=== PATIENT | male | born 1960 | race Caucasian/White ===

== ENCOUNTER 2017-01-09 11:32 | Inpatient (IN) | payer OTHER ==
[~2017-01-09] VITALS: Ht 177.8 cm; Wt 102.7 kg
[2017-01-09] VITALS (8 sets, daily range): BP systolic 117–144; BP diastolic 61–85; PULSE 73–88; RESP 18–25; TEMP 97.7–98.7; O2SAT 97–99
[~2017-01-09 11:32] MED LIST: DOXY100T PO; SULF-154 PO; TRAM50 PO; Z.0.NO CURRENT MEDS
[2017-01-09] MEDS ORDERED: bp med PO (12:05)
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
[2017-01-09 14:09] LABS: AUTOMATED NEUTROPHIL # 10.5 TH/MM3 (1.8-7.7); BASOPHIL # 0.1 TH/MM3 (0-0.2); BASOPHIL % 0.4 % (0.0-2.0); EOSINOPHIL % 0.3 % (0.0-4.0); HEMATOCRIT 48.8 % (39.0-51.0); HEMO FLAGS DIFF FINAL; LYMPH % 12.4 % (9.0-44.0); LYMPHOCYTE # 1.7 TH/MM3 (1.0-4.8); MEAN CELL VOLUME 83.4 FL (80.0-100.0); MEAN CORPUSCULAR HEMOGLOBIN 28.5 PG (27.0-34.0); MEAN CORPUSCULAR HGB CONC 34.1 % (32.0-36.0); NEUT % 75.9 % (16.0-70.0); PLATELET COUNT 170 TH/MM3 (150-450); RED BLOOD COUNT 5.85 MIL/MM3 (4.50-5.90); RED CELL DISTRIBUTION WIDTH 13.9 % (11.6-17.2); WHITE BLOOD COUNT 13.9 TH/MM3 (4.0-11.0)
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
[2017-01-09 14:18] LABS: APTT (PATIENT) 23.6 SEC (24.3-30.1); PROTHROMBIN TIME - PATIENT 11.1 SEC (9.8-11.6)
[2017-01-09 14:25] LABS: BICARBONATE 23.8 MEQ/L (21.0-32.0); POTASSIUM 3.8 MEQ/L (3.5-5.1)
[2017-01-09] MEDS ORDERED: CHLORHEXIDINE GLUCONATE 2 % 1 PACK (2 CLOTHS) TOP PRN ×2 (15:30→17:00)
[2017-01-09] MEDS ORDERED: ACETAMINOPHEN 325 MG TAB PO PRN ×2 (15:30→18:00)
[2017-01-09] MEDS ORDERED: MISCELLANEOUS NURSING INFORMATION XX SCH ×2 (15:30→17:00)
[2017-01-09] MEDS ORDERED: SODIUM CHLORIDE 0.9% FLUSH 10 ML FLUSH IV FLUSH PRN (15:30)
[2017-01-09] MEDS: PANTOPRAZOLE SODIUM 40 MG VIAL IV SCH (15:52)
[2017-01-09] MEDS: SODIUM CHLOR 0.9% 1000 ML INJ 1,000 ML IV SCH (15:52)
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
[2017-01-09] MEDS ORDERED: LORazepam 2 MG/ML VIAL IVP PRN (18:00)
[2017-01-09] MEDS ORDERED: RESP: ALBUTEROL 2.5 MG/3 ML NEB (PRN) NEB (18:00)
[2017-01-09] MEDS ORDERED: ALUMINUM/MAGNESIUM/SIMETH 30 ML CUP PO PRN (18:00)
[2017-01-09] MEDS ORDERED: MAGNESIUM HYDROXIDE SUSP 30 ML CUP PO PRN (18:00)
[2017-01-09] MEDS ORDERED: LABETALOL HCL 100 MG/20 ML VIAL IV PRN (18:00)
[2017-01-09] MEDS ORDERED: cloNIDine HCL 0.1 MG TAB PO PRN (18:00)
[2017-01-09] MEDS: SODIUM CHLORIDE 0.9% FLUSH 10 ML FLUSH IV FLUSH SCH (21:00)
[2017-01-09] MEDS: ACETAMINOPHEN/HYDROcodone 325 MG/10 MG TAB PO PRN (21:24)
[2017-01-09] MEDS: DOCUSATE SODIUM 100 MG CAP PO SCH (21:34)
[2017-01-09] MEDS: BACITRACIN TOP OINT 15 GM TUBE TOP SCH (22:08)
[2017-01-10] VITALS (13 sets, daily range): BP systolic 114–140; BP diastolic 74–96; PULSE 56–83; RESP 15–20; TEMP 97.1–99.4; O2SAT 94–98
[2017-01-10] MEDS: MORPHINE SULFATE 4 MG/ML INJ IV PRN ×2 (01:10→04:23)
[2017-01-10] MEDS: SODIUM CHLOR 0.9% 1000 ML INJ 1,000 ML IV SCH ×2 (03:15→15:10)
[2017-01-10] MEDS: CHLORHEXIDINE GLUCONATE 2 % 1 PACK (2 CLOTHS) TOP SCH (03:41)
[2017-01-10] MEDS ORDERED: CHLORHEXIDINE GLUCONATE 2 % 1 PACK (2 CLOTHS) TOP SCH (04:00)
[2017-01-10 04:20] LABS: AUTOMATED NEUTROPHIL # 4.7 TH/MM3 (1.8-7.7); BASOPHIL % 0.4 % (0.0-2.0); EOSINOPHIL # 0.1 TH/MM3 (0-0.4); EOSINOPHIL % 0.8 % (0.0-4.0); HEMATOCRIT 41.1 % (39.0-51.0); HEMO FLAGS DIFF FINAL; LYMPH % 26.8 % (9.0-44.0); LYMPHOCYTE # 2.2 TH/MM3 (1.0-4.8); MEAN CELL VOLUME 82.1 FL (80.0-100.0); MEAN CORPUSCULAR HEMOGLOBIN 28.4 PG (27.0-34.0); MEAN CORPUSCULAR HGB CONC 34.6 % (32.0-36.0); PLATELET COUNT 170 TH/MM3 (150-450); RED BLOOD COUNT 5.01 MIL/MM3 (4.50-5.90); RED CELL DISTRIBUTION WIDTH 13.7 % (11.6-17.2)
[2017-01-10 04:44] LABS: BICARBONATE 25.9 MEQ/L (21.0-32.0); POTASSIUM 3.7 MEQ/L (3.5-5.1)
--- NOTE | 2017-01-10 05:14 | RADRPT ---
EXAM DATE/TIME: 01/10/2017 04:02 [facility] COMPARISON: CT BRAIN W/O CONTRAST, January 09, 2017, 12:33. INDICATIONS : Evaluate for subarachnoid blood in frontal region. RADIATION DOSE: 56.35 CTDIvol (mGy) MEDICAL HISTORY : None SURGICAL HISTORY : None. ENCOUNTER: Initial ACUITY: 1 day PAIN SCALE: 4/10 LOCATION: cranial TECHNIQUE: Multiple contiguous axial images were obtained of the head. Using automated exposure control and adj ustment of the mA and/or kV according to patient size, radiation dose was kept as low as reasonably a chievable to obtain optimal diagnostic quality images. FINDINGS: There is a large scalp hematoma on the left no change. Slight hemorrhage is present in the right frontal lobe tracking along the anterior falx appears to have improved since the prior examination. There is no mass effect. There is new area of subarachnoid hemorrhage in the left high convexity post erior parietal lobule not present previously. CONCLUSION: 1. Stable right frontal subarachnoid hemorrhage without any significant mass effect. 2. New area of subarachnoid hemorrhage in the left high convexity posterior parietal lobule not prese nt previously. Leandra Welsh MD on January 10, 2017 at 5:09 Board Certified Radiologist. This report was verified electronically.
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
[2017-01-10] MEDS: DOCUSATE SODIUM 100 MG CAP PO SCH ×2 (08:12→21:13)
[2017-01-10] MEDS: PANTOPRAZOLE SODIUM 40 MG VIAL IV SCH (08:12)
[2017-01-10] MEDS: SODIUM CHLORIDE 0.9% FLUSH 10 ML FLUSH IV FLUSH SCH ×2 (08:13→21:13)
[2017-01-10] MEDS: BACITRACIN TOP OINT 15 GM TUBE TOP SCH ×2 (08:14→21:00)
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
[2017-01-10] MEDS: ACETAMINOPHEN/HYDROcodone 325 MG/10 MG TAB PO PRN (18:51)
[2017-01-11] MEDS: ACETAMINOPHEN/HYDROcodone 325 MG/10 MG TAB PO PRN ×5 (00:33→21:07)
[2017-01-11] MEDS: SODIUM CHLOR 0.9% 1000 ML INJ 1,000 ML IV SCH ×2 (03:05→14:10)
[2017-01-11 04:00] VITALS: BP 134/80; PULSE 53; RESP 20; TEMP 98; O2SAT 97
[2017-01-11] MEDS: CHLORHEXIDINE GLUCONATE 2 % 1 PACK (2 CLOTHS) TOP SCH (04:00)
[2017-01-11 07:35] LABS: APTT (PATIENT) 29.2 SEC (24.3-30.1)
[2017-01-11 08:00] VITALS: BP 134/81; PULSE 64; RESP 18; TEMP 96.8; O2SAT 97
[2017-01-11] MEDS: PANTOPRAZOLE SOD 40 MG DELAYED RELEASE TAB PO SCH (08:59)
[2017-01-11] MEDS: DOCUSATE SODIUM 100 MG CAP PO SCH ×2 (08:59→21:06)
[2017-01-11] MEDS: BACITRACIN TOP OINT 15 GM TUBE TOP SCH ×2 (09:00→21:00)
[2017-01-11] MEDS: SODIUM CHLORIDE 0.9% FLUSH 10 ML FLUSH IV FLUSH SCH ×2 (09:00→21:00)
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
[2017-01-11] MEDS: ONDANSETRON HCL 4 MG/2 ML VIAL IV PRN (10:36)
[2017-01-11 12:00] VITALS: BP 148/90; PULSE 65; RESP 18; TEMP 96.6; O2SAT 98
[2017-01-11 16:00] VITALS: BP 138/84; PULSE 60; RESP 18; TEMP 97.5; O2SAT 96
[2017-01-11 20:00] VITALS: BP 134/83; PULSE 59; RESP 20; TEMP 98.1; O2SAT 97
--- NOTE | 2017-01-11 23:58 | HHI.NSPN ---
History Chief Complaint: Mild frontal headache. Exam Results Vital Signs Date Time Temp Pulse Resp B/P Pulse Ox O2 Delivery O2 Flow Rate FiO2 01/11/17 20:00 98.1 59 20 134/83 97 01/10/17 09:20 21 01/10/17 08:00 Room Air Intake and Output 01/10/17 01/10/17 01/11/17 08:00 16:00 00:00 Intake Total 1159 ml 1140 ml Output Total 600 ml 400 ml Balance 559 ml 740 ml Physical Examination Resp: CTA bilaterally Heart: NSR no murmurs Abd: Soft positive bs Skin: Facial abrasions and edema left more than right. Muscle: Moves all 4 extremities well. Ambulating independently to bathroom. Neuro: Pt awake and alert. Follows simple commands. Pt anxious. He ambulates independently. He follows commands well. Lab, Micro, Other Results Laboratory Tests Test 01/11/17 06:50 Activated Partial 29.2 SEC Thromboplast Time Marco Neri MD Jan 11, 2017 23:58
[2017-01-12] VITALS: BP 123/84; PULSE 56; RESP 22; TEMP 97.6; O2SAT 96
[2017-01-12] MEDS: SODIUM CHLOR 0.9% 1000 ML INJ 1,000 ML IV SCH (02:55)
[2017-01-12 04:00] VITALS: BP 134/86; PULSE 59; RESP 20; TEMP 98.1; O2SAT 97
[2017-01-12] MEDS: CHLORHEXIDINE GLUCONATE 2 % 1 PACK (2 CLOTHS) TOP SCH (04:00)
[2017-01-12] MEDS: ACETAMINOPHEN/HYDROcodone 325 MG/10 MG TAB PO PRN (05:24)
[2017-01-12 08:10] VITALS: BP 127/84; PULSE 61; RESP 18; TEMP 97.4; O2SAT 96
[2017-01-12 08:26] LABS: APTT (PATIENT) 29.1 SEC (24.3-30.1)
[2017-01-12] MEDS: DOCUSATE SODIUM 100 MG CAP PO SCH (09:05)
[2017-01-12] MEDS: BACITRACIN TOP OINT 15 GM TUBE TOP SCH (09:05)
[2017-01-12] MEDS: SODIUM CHLORIDE 0.9% FLUSH 10 ML FLUSH IV FLUSH SCH (09:05)
[2017-01-12] MEDS: PANTOPRAZOLE SOD 40 MG DELAYED RELEASE TAB PO SCH (09:05)
[2017-01-12] MEDS ORDERED: HYDR-3583 PO (09:28)
--- NOTE | 2017-01-12 09:30 | HHI.DCPOC ---
Discharge Care Plan Diagnosis: (1) Closed head injury with brief loss of consciousness (2) Traumatic ecchymosis of right knee Your Health Problems Are: Difficulty with ADL Exercise Tolerance Chronic Pain Additional Problems Avoid aspirin and NSAIDs for 2 weeks following discharge. At risk for development of chronic subdural hematoma formation. Symptoms may occur up to several weeks following discharge, and include progressive headache , dizziness, speech difficulty, memory loss, weakness, loss of coordination, difficulty with ambulation. Return to emergency room or consult physicians immediately of such problems occur. Goals to Promote Your Health * To prevent worsening of your condition and complications * To maintain your health at the optimal level Directions to Meet Your Goals Take your medications as prescribed Follow your dietary instruction Follow activity as directed Keep your appointments as scheduled Take your immunizations and boosters as scheduled If your symptoms worsen call your PCP, if no PCP go to Urgent Care Center or Emergency Room Smoking is Dangerous to Your Health. Avoid second hand smoke Call the 24-hour hour crisis hotline for domestic abuse at Marco Neri MD Jan 12, 2017 09:30
--- NOTE | 2017-01-12 09:33 | HHI.DS ---
Discharge Summary Admission Date Jan 09, 2017 at 14:44 Discharge Date: Jan 12, 2017 Admitting Diagnosis TRAUMATIC SAH; FRONTAL-PARIETAL SCALP HEMATOMA (1) Closed head injury with brief loss of consciousness Diagnosis: Principal ICD Code: S06.9X9A (2) Traumatic ecchymosis of right knee Diagnosis: Secondary ICD Code: S80.01XA (3) Scalp contusion Diagnosis: Secondary ICD Code: S00.03XA CBC/BMP: 01/10/17 0319 01/10/17 0319 Significant Findings Laboratory Tests Test 01/09/17 01/10/17 13:55 03:19 White Blood Count 13.9 TH/MM3 (4.0-11.0) Neutrophils (%) (Auto) 75.9 % (16.0-70.0) Monocytes (%) (Auto) 11.0 % 14.0 % (0.0-8.0) (0.0-8.0) Neutrophils # (Auto) 10.5 TH/MM3 (1.8-7.7) Monocytes # (Auto) 1.5 TH/MM3 1.1 TH/MM3 (0-0.9) (0-0.9) Activated Partial 23.6 SEC Thromboplast Time (24.3-30.1) Blood Urea Nitrogen 19 MG/DL (7-18) Estimat Glomerular Filtration 69 ML/MIN (>89) 80 ML/MIN (>89) Rate Random Glucose 131 MG/DL (74-106) Imaging Last Impressions Head CT 01/10/17 0400 Signed Impressions: Service Date/Time: Tuesday, January 10, 2017 04:02 - CONCLUSION: 1. Stable right frontal subarachnoid hemorrhage without any significant mass effect. 2. New area of subarachnoid hemorrhage in the left high convexity posterior parietal lobule not present previously. Leandra Welsh MD Knee X-Ray 01/10/17 0000 Signed Impressions: Service Date/Time: Tuesday, January 10, 2017 08:35 - CONCLUSION: 1. Mild last arthritic changes. No acute fracture. Krunal Reeves MD Chest X-Ray 01/09/17 0000 Signed Impressions: Service Date/Time: January 13:07 - CONCLUSION: The lungs are clear. Matthew Chery MD Cervical Spine CT 01/09/17 0000 Signed Impressions: Service Date/Time: January 12:36 - CONCLUSION: Moderate severity discogenic degenerative changes in the mid cervical spine. No evidence of fracture or spondylolisthesis. Matthew Chery MD Hospital Course Admitted for treatment of brain injury. Hospital course uneventful. Steady progress with diet and activity during hospitalization. Follow-up CT scan head stable traumatic brain injury without significant mass effect Date of discharge patient tolerating diet, ambulating well, vital signs stable, with pain adequately controlled with medications. Instructions for activity precautions, signs and symptoms to watch for, use of medications fully discussed. Pt Condition on Discharge: Stable Discharge Disposition: Discharge Home Discharge Instructions DIET: Follow Instructions for: As Tolerated, No Restrictions ACTIVITIES You can perform: Weight Bearing As [place] Activities to Avoid: Lifting/Bending, Strenuous Activity Follow up Referrals: Appointment for Follow Up @ Dr. Kendall Hartman New Medications: Hydrocodone-Acetaminophen (Hydrocodone-Acetaminophen) 10-325 mg Tab 1 TAB PO Q4H PRN PAIN SCALE 1 TO 5 #60 Ref 0 TAB Continued Medications: ([bp med]) Unknown Dose PO DAILY Marco Neri MD Jan 12, 2017 09:33
[2017-01-12] MEDS: ONDANSETRON HCL 4 MG/2 ML VIAL IV PRN (10:46)
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
== END 2017-01-12 12:01 | disposition home or self-care (01) | DRG 84 ==
LOC: NEDAMB 11:32 → NEDA 14:44 → N03B 21:03 → N05A 01-10 23:08
PROVIDERS: ADMIT Neurological Surgery; ATTEND Neurological Surgery
DX: S06.6X1A Traumatic subarachnoid hemorrhage with loss of consciousness of 30 minutes or less, initial encounter (principal); S06.5X9A Traumatic subdural hemorrhage with loss of consciousness of unspecified duration, initial encounter; I10 Essential (primary) hypertension; S01.112A Laceration without foreign body of left eyelid and periocular area, initial encounter; S01.21XA Laceration without foreign body of nose, initial encounter; S13.9XXA Sprain of joints and ligaments of unspecified parts of neck, initial encounter; S80.211A Abrasion, right knee, initial encounter; F17.210 Nicotine dependence, cigarettes, uncomplicated; V49.69XA Unspecified car occupant injured in collision with other motor vehicles in traffic accident, initial encounter; Y92.410 Unspecified street and highway as the place of occurrence of the external cause; R40.2414 Glasgow coma scale score 13-15, 24 hours or more after hospital admission
CPT/HCPCS: 70450; 71010; 72125; 73560; 80048; 85025; 85610; 85730; 87641; C9113; J2270; J2405; J7030; L0150